=== PATIENT | male | born 1965 | race Caucasian/White ===

== ENCOUNTER 2019-12-31 00:47 | Outpatient (CLI) | payer BC, SELFPAY ==
[2019-12-31 17:37] LABS: SARS-CoV-2 RNA PCR Negative
== END 2019-12-31 00:48 | disposition home or self-care (01) ==
LOC: ANHCOVIDDT 00:47
PROVIDERS: PCP Family Medicine; Visit Provider Internal Medicine Gastroenterology
DX: Z01.812 Encounter for preprocedural laboratory examination (principal); Z20.828 Contact with and (suspected) exposure to other viral communicable diseases
CPT/HCPCS: 87635; C9803; U0003

== ENCOUNTER 2020-01-03 00:44 | Day surgery (SDC) | payer BC, SELFPAY ==
[2019-12-27 14:59] VITALS: BMI 36.4
[2020-01-03 07:15] VITALS: BP 133/91; PULSE 87; RESP 18; O2SAT 100
--- NOTE | 2020-01-03 07:28 | WPDGICN ---
Assessment and Plan Assessment and plan (1) Family history of colon cancer in father: Code(s): Z80.0 - Family history of malignant neoplasm of digestive organs Status: Acute Assessment and Plan: Patient has a family history of colon cancer in his father for this reason patient presents for screening colonoscopy. Further recommendations will be given after colonoscopy. GI Consult Note Consult date/time: 01/03/20 07:28 HPI: Ang Zurita is a 54 year old male Seen in evaluation at the request of Dr. Heber Acuna. Patient presents for colonoscopy. Family history is significant the patient's father had colon cancer. Patient's last colonoscopy 5 years ago was unremarkable. His current weight appetite bowel movements are normal. Patient denies any bleeding. He has no abdominal pain. Bowel habits are normal. Patient presents for surveillance colonoscopy at this time. Review of Systems Review of Systems: All systems reviewed & are unremarkable except as noted in HPI and below PMFSH Social History Social History Smoking packs per day: 1 Smoking cigarettes per day: 20.0 Years smoked: 10 Smoking pack-years: 10.00 Smoking status: Former smoker Tobacco type: cigarettes Substance use: never Substance use type: does not use Living arrangements: with family Spiritual care concerns: No Meds Home Medications and Allergies Home Medications Medication Instructions Recorded Confirmed Type losartan 50 mg PO DAILY 12/27/19 12/27/19 History omeprazole 20 mg PO DAILY 12/27/19 12/27/19 History Allergies Allergy/AdvReac Type Severity Reaction Status Date / Time Penicillins Allergy Severe Anaphylaxis Verified 01/03/20 07:28 Exam Narrative: Exam Narrative: Physical exam reveals patient to be alert. Vital signs stable. HEENT exam unremarkable. Patient is alert vital signs stable lungs are clear heart is without murmur abdominal exam bowel sounds are present soft nontender with no organomegaly. Digital external rectal exam is normal.
[2020-01-03 07:29] VITALS: BMI 34.6
[2020-01-03] MEDS: LACTATED RINGERS 1,000 ML 150 ML IV CONT (07:39)
--- NOTE | 2020-01-03 07:43 | WPDANESEPPF ---
Anes - Initial Pre Proc Eval Procedure: Operation Date: 01/03/20 08:30 Proposed Procedures p Screening Colonoscopy - Len Alberts MD Date/Time: 01/03/20 07:43 Surgeon: Len Alberts MD Pre Op Diagnosis: neoplasm screening, fm hx colon ca Patient Data Age: 54 Gender: M Height: 5 ft 9 in Weight: 106.3 kg Allergies Allergy/AdvReac Type Severity Reaction Status Date / Time Penicillins Allergy Severe Anaphylaxis Verified 01/03/20 07:28 Home Medications Medication Instructions Recorded Confirmed Type losartan 50 mg PO DAILY 12/27/19 12/27/19 History omeprazole 20 mg PO DAILY 12/27/19 12/27/19 History Patient hx anesthesia problems: none Family hx anesthesia problems: none PMFSH Past Medical History Medical History (Updated 01/03/20 @ 07:43 by Rylan Boggs MD) HTN (hypertension) Hyperlipidemia Obesity Surgical History Surgical History (Updated 01/03/20 @ 07:44 by Rylan Boggs MD) H/O colonoscopy History of appendectomy Social History Social History Smoking packs per day: 1 Smoking cigarettes per day: 20.0 Years smoked: 10 Smoking pack-years: 10.00 Smoking status: Former smoker Tobacco type: cigarettes Substance use: never Substance use type: does not use Living arrangements: with family Spiritual care concerns: No Anes - Eval Final PreProcedure Day of Procedure 01/03/20 07:43 Patient weight: obese Heart: regular rate and rhythm Lungs: clear to auscultation Airway: Mallampati scale class II Neurological: alert and oriented Last oral intake: >/= 8 hours ASA classification: III Emergent: no Anesthetic plan: proceed Anesthesia type and monitoring: general GIVS and standard monitoring Informed Consent: The patient's anesthetic plan and its attendant risks and benefits were discussed with the patient/family/POA. Questions were solicited and answers provided to the satisfaction of the patient/family/POA.
[2020-01-03 08:46] VITALS: BP 98/62; PULSE 85; RESP 19; O2SAT 98
[2020-01-03 08:56] VITALS: BP 126/92; PULSE 77; RESP 20; O2SAT 98
[2020-01-03 09:06] VITALS: BP 127/94; PULSE 76; RESP 15; O2SAT 98
== END 2020-01-03 09:15 | disposition home or self-care (01) ==
PROVIDERS: PCP Family Medicine; Visit Provider Internal Medicine Gastroenterology
PROC: 0DJD8ZZ Inspection of Lower Intestinal Tract, Via Natural or Artificial Opening Endoscopic (ICD-10-PCS; CPT 45378; principal; 2020-01-03 08:30)
DX: Z12.11 Encounter for screening for malignant neoplasm of colon (principal); K64.8 Other hemorrhoids; Z80.0 Family history of malignant neoplasm of digestive organs; I10 Essential (primary) hypertension; E78.5 Hyperlipidemia, unspecified; E66.9 Obesity, unspecified; Z68.34 Body mass index [BMI] 34.0-34.9, adult; Z87.891 Personal history of nicotine dependence
CPT/HCPCS: 45378; J2704; J7120

== ENCOUNTER → 2020-03-06 11:16 | Outpatient (CLI) | payer BC, SELFPAY ==
--- NOTE | ~2020-03-06 | CT_ITS ---
EXAMINATION: CT abdomen pelvis wo con DATE: 03/06/2020 11:40 INDICATION: Acute flank pain TECHNIQUE: Computed tomography (CT) of the abdomen and pelvis was performed without intravenous contr ast. The dose-length product (DLP) was 1212.69 mGy-cm. Automated exposure control and iterative recon struction technique were employed. COMPARISON: 01/10/2018 FINDINGS: The lung bases are clear. The heart size is normal. The liver, spleen, pancreas, gallbladde r, and adrenal glands are normal. The kidneys are unremarkable. No stones are identified in the kidne ys, ureters, or bladder. There is no hydronephrosis or hydroureter. No pathologically enlarged abdomi nal or pelvic lymph nodes are identified. There is no free intraperitoneal gas or evidence of bowel o bstruction. There is moderate lumbar spondylosis. There is a tiny umbilical hernia containing fat. IMPRESSION: 1. No CT correlate for the patient's symptoms. No urolithiasis identified. Reviewed, dictated and finalized at location A. RAL MAINTENANCE ENGINEER
--- NOTE | ~2020-03-06 | XR_ITS ---
EXAMINATION: XR abdomen/kub 1V INDICATION: Left flank pain TECHNIQUE: Supine views of the abdomen were obtained on 2 radiographs. COMPARISON: None FINDINGS: No urolithiasis is identified. The bowel gas pattern is normal. There are phleboliths of th e pelvis. 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 IMPRESSION: 1. No urolithiasis identified. Reviewed, dictated and finalized at location A. TECH
== END ==
PROVIDERS: Visit Provider Urology
DX: R10.9 Unspecified abdominal pain (principal)
CPT/HCPCS: 74018; 74176

== ENCOUNTER → 2021-03-22 03:17 | Outpatient (CLI) | payer BC, SELFPAY ==
[2021-03-22 22:12] LABS: SARS-CoV-2 RNA PCR Negative
== END ==
PROVIDERS: PCP Family Medicine; Visit Provider Internal Medicine Gastroenterology
DX: Z01.812 Encounter for preprocedural laboratory examination (principal); Z20.822 Contact with and (suspected) exposure to COVID-19
CPT/HCPCS: C9803; U0003; U0005

== ENCOUNTER → 2021-05-27 00:37 | Outpatient (CLI) | payer BC, SELFPAY ==
[2021-05-27 11:25] LABS: SARS-CoV-2 RNA PCR Negative
== END ==
PROVIDERS: PCP Family Medicine; Visit Provider Internal Medicine Gastroenterology
DX: Z01.812 Encounter for preprocedural laboratory examination (principal); Z20.822 Contact with and (suspected) exposure to COVID-19
CPT/HCPCS: C9803; U0003; U0005

== ENCOUNTER 2021-05-30 02:36 | Day surgery (SDC) | payer BC, SELFPAY ==
[2021-03-06 14:00] VITALS: BMI 35.8
[2021-05-21 09:55] VITALS: BMI 35.8
[2021-05-30 07:46] VITALS: BP 149/95; PULSE 85; RESP 20; TEMP 36.7; O2SAT 99
--- NOTE | 2021-05-30 07:53 | WPDGICN ---
Assessment and Plan Assessment and plan (1) Gastroesophageal reflux disease: Code(s): K21.9 - Gastro-esophageal reflux disease without esophagitis Status: Acute Assessment and Plan: Patient has a history of acid regurgitation reflux. Currently on Prilosec and Pepcid with good response. He complains of ongoing throat clearing he attributes this to acid reflux. Because this is fail to improve an EGD will be performed. (2) Throat clearing: Code(s): R68.89 - Other general symptoms and signs Status: Acute Assessment and Plan: Throat clearing may be related to acid reflux but could be an alternate etiology such as postnasal drip. Plan is for EGD and if no distinct abnormalities then ENT a referral would be in order. GI Consult Note Consult date/time: 05/30/21 07:53 HPI: Ang Zurita is a 55 year old male Presents for EGD. Patient complains of acid reflux and regurgitation. He notices distinct episodes of nocturnal regurgitation and substernal heartburn. He has been maintained on proton pump inhibitor therapy. Currently on famotidine 40mg p.o. daily. And omeprazole 20mg p.o. daily. He denies any heartburn at present. He does continue to clear his throat frequently and is concerned that this may be related to underlying acid reflux. Patient presents today for EGD to assess more thoroughly. Patient has a history of colonoscopy in the fall. Because of a family history of colon cancer in his father. Anticipate follow-up at 5 year intervals. Review of Systems Review of Systems: All systems reviewed & are unremarkable except as noted in HPI and below PMFSH Past Medical History Medical History (Updated 05/30/21 @ 07:55 by Len Alberts MD) Asthma HTN (hypertension) Hyperlipidemia Obesity Surgical History Surgical History H/O colonoscopy History of appendectomy Social History Social History Smoking packs per day: 0.5 Smoking cigarettes per day: 10.0 Years smoked: 8 Smoking pack-years: 4.00 Smoking status: Former smoker Tobacco type: cigarettes Alcohol intake: current Alcohol use details: very rarely Substance use: never Substance use type: does not use Living arrangements: with family Spiritual care concerns: No Meds Home Medications and Allergies Home Medications Medication Instructions Recorded Confirmed Type losartan 50 mg PO DAILY 12/27/19 05/30/21 History famotidine 40 mg tablet 40 mg PO DAILY 02/20/21 05/30/21 History ropinirole 1 mg tablet 1 mg PO BID 02/20/21 05/30/21 History trazodone 50 mg tablet 50 mg PO QHS PRN 02/20/21 05/30/21 History omeprazole 20 mg PO DAILY 05/30/21 05/30/21 History Allergies Allergy/AdvReac Type Severity Reaction Status Date / Time Penicillins Allergy Severe Anaphylaxis Verified 05/30/21 07:43 Vital Signs Vital Signs - 24 hr 05/30/21 07:46 Temperature 98.0 F Pulse Rate 85 Respiratory Rate 20 Blood Pressure 149/95 H Pulse Oximetry 99 Exam Narrative: Physical exam reveals patient to be alert. Vital signs stable. HEENT exam is unremarkable. Patient is anicteric. Lungs are clear to auscultation and percussion. Heart is without murmur or extra sounds. Abdomen bowel sounds present soft nontender with no organomegaly.
[2021-05-30] MEDS: LACTATED RINGERS 1,000 ML 150 ML IV CONT (07:55)
--- NOTE | 2021-05-30 07:59 | WPDANESEPPF ---
Anes - Initial Pre Proc Eval Procedure: Operation Date: 05/30/21 09:00 Proposed Procedures p Esophagogastroduodenoscopy - Len Alberts MD Date/Time: 05/30/21 07:59 Surgeon: Len Alberts MD Pre Op Diagnosis: GERD Patient Data Age: 55 Gender: M Height: 1.75 m Weight: 111.9 kg Last Vital Signs Temp 36.7 C 05/30/21 07:46 Pulse 85 05/30/21 07:46 Resp 20 05/30/21 07:46 BP 149/95 H 05/30/21 07:46 Pulse Ox 99 05/30/21 07:46 Allergies Allergy/AdvReac Type Severity Reaction Status Date / Time Penicillins Allergy Severe Anaphylaxis Verified 05/30/21 07:43 Home Medications Medication Instructions Recorded Confirmed Type losartan 50 mg PO DAILY 12/27/19 05/30/21 History famotidine 40 mg tablet 40 mg PO DAILY 02/20/21 05/30/21 History ropinirole 1 mg tablet 1 mg PO BID 02/20/21 05/30/21 History trazodone 50 mg tablet 50 mg PO QHS PRN 02/20/21 05/30/21 History omeprazole 20 mg PO DAILY 05/30/21 05/30/21 History Patient hx anesthesia problems: none Family hx anesthesia problems: none Results Review: All pre-operative results and documents have been reviewed as part of the pre-operative evaluation. [facility], LAT[facility] Past Medical History Medical History Asthma HTN (hypertension) Hyperlipidemia Obesity Surgical History Surgical History H/O colonoscopy History of appendectomy Social History Social History Smoking packs per day: 0.5 Smoking cigarettes per day: 10.0 Years smoked: 8 Smoking pack-years: 4.00 Smoking status: Former smoker Tobacco type: cigarettes Alcohol intake: current Alcohol use details: very rarely Substance use: never Substance use type: does not use Living arrangements: with family Spiritual care concerns: No Anes - Eval Final PreProcedure Day of Procedure 05/30/21 07:59 Patient weight: obese Heart: regular rate and rhythm Lungs: clear to auscultation Airway: Mallampati scale class II Neurological: alert and oriented Last oral intake: >/= 8 hours ASA classification: III Emergent: no Anesthetic plan: proceed Anesthesia type and monitoring: general GIVS and standard monitoring Results Review: All pre-operative results and documents have been reviewed as part of the pre-operative evaluation. Informed Consent: The patient's anesthetic plan and its attendant risks and benefits were discussed with the patient/family/POA. Questions were solicited and answers provided to the satisfaction of the patient/family/POA.
[2021-05-30 09:00] VITALS: BP 124/85; PULSE 81; RESP 20; O2SAT 99
[2021-05-30 09:10] VITALS: BP 137/97; PULSE 82; RESP 18; O2SAT 99
[2021-05-30 09:20] VITALS: BP 140/96; PULSE 79; RESP 19; O2SAT 98
== END 2021-05-30 09:27 | disposition home or self-care (01) ==
PROVIDERS: PCP Family Medicine; Visit Provider Internal Medicine Gastroenterology
PROC: 0DJ08ZZ Inspection of Upper Intestinal Tract, Via Natural or Artificial Opening Endoscopic (ICD-10-PCS; CPT 43235; principal; 2021-05-30 09:00)
DX: K21.9 Gastro-esophageal reflux disease without esophagitis (principal); R11.10 Vomiting, unspecified; I10 Essential (primary) hypertension; E78.5 Hyperlipidemia, unspecified; E66.9 Obesity, unspecified; Z68.36 Body mass index [BMI] 36.0-36.9, adult; Z87.891 Personal history of nicotine dependence
CPT/HCPCS: 43235; J2704; J7120

== ENCOUNTER → 2022-03-03 13:32 | Outpatient (CLI) | payer BC, SELFPAY ==
--- NOTE | ~2022-03-03 | MR_ITS ---
MRI of the left knee Clinical history: Pain Technique: Coronal proton density and proton density-weighted images, sagittal proton-density and T2 fat-sat images, and axial proton-density fat-saturated images were acquired. Findings: Anterior and posterior cruciate ligament are intact. Probable mild mucoid degenerative balbuena ge of the ACL. Medial collateral ligament and the lateral collateral ligament complex are intact. Pop liteus tendon is intact. No lateral meniscal tear identified. There is a radial tear at the posterior root of the medial meni scus. Additional tearing of the free edge of the body segment of the medial meniscus. There is diffuse high-grade chondromalacia the medial compartment with mild reactive subchondral elmer ow edema. There is probable moderate cartilage along the medial patellar facet. Remaining articular c artilage is intact. No other bone marrow signal abnormality seen. Extensor mechanism is intact. No significant joint effusion. No Worley's cyst. Impression: Radial tear of the posterior root of the medial meniscus. Possible additional tearing of the free edg e of the body segment. Diffuse high-grade chondromalacia the medial compartment with reactive subchondral marrow edema. Moderate chondrolysis at the medial patellar facet. Mild mucoid degenerative change of the ACL. Reviewed, dictated and finalized at location . NEERING AND OPERATIONS DIRECTOR Impression: Radial tear of the posterior root of the medial meniscus. Possible additional t earing of the free edge of the body segment. Diffuse high-grade chondromalacia the medial compartment with reactive subchond ral marrow edema. Moderate chondrolysis at the medial patellar facet. Mild mucoid degenerative change of the ACL.
== END ==
PROVIDERS: Visit Provider Nurse Practitioner Adult Health
DX: M25.562 Pain in left knee (principal)
CPT/HCPCS: 73721

== ENCOUNTER 2023-12-30 08:01 | Outpatient (CLI) | payer BC, SELFPAY ==
[2024-01-20 13:46] VITALS: BMI 36.1
--- NOTE | 2024-01-20 13:46 | P.SLEEP_ITS ---
Sleep Study - Home Unattended Date of Study: 12/30/23 Ordering Provider: Jojo Willis, PANorisC Interpreting Provider: Monica Metz, DO Home Sleep Study Type: Watch PAT Height: 1.75 m Weight: 111.13 kg Body Mass Index: 36.1 Neck Circumference (inches): 19.5 [place]: 4 Reason for Sleep Study Difficulty staying asleep Sleep History The patient is a 58-year-old male that had a sleep study ordered by his primary care for evaluation of sleep apnea. The patient admits having difficulty maintaining sleep. He denies loud snoring. He denies interruptions in his breathing while asleep. He denies choking or gasping. He denies having trouble breathing on his back. He denies waking up in the morning with headache. He denies having a dry or sour or mouth/ throat in the morning. He denies nocturnal heartburn. He denies nocturia. He denies having trouble falling asleep. He does have difficulty returning to sleep if he wakes up during the night. He denies taking any hypnotics or sedatives. He denies feeling anxious about sleep. He denies feeling tired or fatigued during the day. He admits to feeling unrefreshed retired in the morning. He denies having the urge to fall asleep during the day. He denies feeling drowsy while driving. He denies sleep paralysis, cataplexy and hypnagogic / hypnopompic hallucinations. He denies clenching or grinding his teeth during the night. He denies kicking or jerking his legs excessively. He goes to bed at 8:30 p.m. on both weekdays and weekends. It takes him 30 minutes to fall asleep on work days and 45 minutes on his days off. He typically gets 5-1/2 hours of sleep on his work days and 6 hours of sleep on his days. He states that his sleep is not at all restorative on his days off. He denies taking any planned naps. He denies dream enactment behavior. He denies sleep walking. He consumes 1-2 cups of caffeinated beverage per day. He consumes 1 glass of an alcoholic beverage 1-2 nights per week. He denies tobacco use. He exercises nearly every day. PMFSH Past Medical History Medical History Allergic rhinitis Asthma Gastroesophageal reflux disease HTN (hypertension) Hyperlipidemia Obesity Surgical History Surgical History H/O colonoscopy History of appendectomy 1988 History of partial knee replacement left Family History Family History Sibling Asthma Mother Ovarian cancer Father Carcinoma of colon Diabetes mellitus Social History Social History Smoking packs per day: 0.5 Smoking cigarettes per day: 10.0 Years smoked: 8 Smoking pack-years: 4.00 Smoking status: Former smoker Tobacco type: cigarettes Alcohol intake: current Alcohol use details: very rarely Substance use: never Substance use type: does not use Do You Feel Safe in your Home?: Yes Lack of Transportation: No Lack of Food: Never True Current Housing: I Have Housing Concerned About Future Housing: No Difficulty Paying Gas/Electric Bills: No Difficulty Paying for Meds: No Currently Unemployed: No Education: High School Diploma/GED Difficulty w/ Childcare or Family Care: No Living arrangements: with family Occupation/Education: occupation Gender identity (if verbalized by the patient): Male Sexual Orientation (if Verbalized by the Patient): Straight or Heterosexual Spiritual care concerns: No Medications Home Medications Medication Instructions Recorded Confirmed Type omeprazole 20 mg capsule,delayed 20 mg PO DAILY #90 caps 08/10/23 Rx release losartan 100 mg tablet 100 mg PO DAILY #90 tabs 09/12/23 Rx Sleep Procedure The sleep study was completed using [employer] a technically adequate device with seven channels: peripheral arterial tone, actigraphy, body position, snore, respiratory movement, pulse oximetry, sleep staging, and heart rate. Prior to using the device, the patient received verbal and written instructions for its application and was provided with the help desk phone number for additional telephonic instruction with 24-hour availability of qualified personnel to answer questions. The study was scored using CMS guidelines. Sleep Architecture The total recording time is 8 hrs, 33 min. The total sleep time is 6 hrs, 13 min. Sleep latency is 18 minutes. REM latency is 125 minutes. The patient had 12 episodes of waking. Sleep architecture shows 16.0% deep sleep, 70.0% light sleep, and (as % Total Sleep Time) showed NREM (Light 70.0%; Deep 16.0%), and a 14.1% stage REM. The patient spent 13.0% of total sleep time in the supine position. Sleep efficiency was 72.71. Respiratory Analysis The overall AHI (pAHI 4%:) is 5.0. The central AHI is 2.4. The AHI was 3.2 in NREM and 16.1 in REM sleep. The AHI was 11.1 in Supine and 4.1 in Non-supine sleep. Percent of Drew Hankins respirations is 0.0. Oximetry Data The oxygen desaturation index (TIARA 4%:) is 5.0. The mean saturation is 94%, and the lowest saturation is 85%. Time spent with saturation < 88% is 0.0 minutes. Snoring Profile Snoring average intensity is 42 dB. The patient snored above 45 decibels for 48.1 minutes, 12.9% of sleep time. Cardiac Profile The average pulse rate is 75 beats per minutes. The lowest pulse rate is 50 bpm. The highest pulse rate reported is 105 bpm. The longest suspected Afibevent duration is 0:00:48. A suspected arrhythmia flagged in the sleep report does not necessarily imply an arrhythmia condition is present, but rather suggests that further investigation should be considered. A-Fib events < 60 seconds may be artifact. Premature beats occur 0.4 per minute. Assessment and Plan Assessment and Plan (1) JOSLYN (obstructive sleep apnea): Code(s): G47.33 - Obstructive sleep apnea (adult) (pediatric) Status: Acute Assessment and Plan: The patient had an overall AHI of 5.0 with desaturation down to 85%. This is consistent with mild sleep apnea. Due to the patient's hypertension, he qualifies for PAP therapy. Due to almost half of the respiratory events being central in nature, the patient is not an ideal candidate for AutoPAP. AutoPAP can increase the severity frequency of central apneas. I recommend that the patient have a CPAP titration study with the use of a hypnotic (Lunesta 2-3 mg or Ambien 5-10 mg) to ensure we obtain enough sleep data and find an optimal pressure. I would consider a 12 lead EKG or a Holter monitor for further evaluation of the patient's suspected cardiac arrhythmia. Data The data obtained during this sleep study is adequate for interpretation. Certification This sleep study has been reviewed by a board certified sleep medicine physician.
== END 2023-12-31 10:36 | disposition home or self-care (01) ==
LOC: ANHCSM 08:03
PROVIDERS: PCP Family Medicine; Visit Provider Physician Assistant
DX: G47.33 Obstructive sleep apnea (adult) (pediatric) (principal)
CPT/HCPCS: 95800